=== PATIENT | female | born 1935 | race Caucasian/White ===

== ENCOUNTER → 2016-06-02 | Outpatient (CLI) | payer MEDICARE, BC ==
--- NOTE | 2016-06-02 10:34 | US ---
EXAMINATION TYPE: US thyroid st tissue head/neck DATE OF EXAM: 06/02/2016 9:13 AM COMPARISON: 2016 CLINICAL HISTORY: Thyroid Nodule E04.1. GLAND SIZE: Right Lobe: 4.6 x 1.7 x 1.9 cm Overall Parenchyma: heterogenous Left Lobe: 4.2 x 1.1 x 1.5 cm Overall Parenchyma: heterogeneous Isthmus Thickness: 0.2 cm NODULES RIGHT: # of nodules measured on right: 3 1. 0.5 X 0.4 x 0.5 cm calcified nodule at the upper/lateral pole with well-defined margins; . This nodule is round and shows no intranodular vascularity. Prior size: 0.7 x 0.6 x 0.6 cm 2. 1.2 X 0.8 x 1.0 cm solid nodule at the upper/mid pole with well-defined margins; . This nodule i s wider than tall and shows intranodular vascularity. Prior size: 1.3 x 1.2 x 1.1 cm 3. 1.0 X 0.5 x 0.7 cm solid nodule at the lateral pole with well-defined margins; . This nodule is wider than tall and shows intranodular vascularity. LEFT: # of nodules measured on left: 1 1. 1.1 X 0.6 x 0.5 cm solid nodule at the lower pole with well-defined margins; . This nodule is w ider than tall and shows intranodular vascularity. Prior size: 1.3 x 1.0 x 0.8 cm ISTHMUS: # of nodules measured in the isthmus: 0 Bilateral neck scanned, no evidence of lymphadenopathy. IMPRESSION: 1. Multinodular goiter. 2. Left lobe thyroid nodule may be increasing in size. Consider correlation with nuclear medicine thy roid scan.
== END | disposition home or self-care (01) ==
LOC: RADUSWWP 08:48
PROVIDERS: ATTEND Internal Medicine
DX: E04.2 Nontoxic multinodular goiter (principal)
CPT/HCPCS: 76536

== ENCOUNTER → 2016-06-13 | Outpatient (CLI) | payer MEDICARE, BC ==
--- NOTE | 2016-06-13 12:55 | NM ---
EXAMINATION TYPE: NM thyroid image only DATE OF EXAM: 06/13/2016 12:49 PM COMPARISON: Thyroid ultrasound 06/02/2016 HISTORY: E04.1 nontoxic single thyroid nodule TECHNIQUE: After the intravenous administration of 10.4 mCi Tc 99m Sodium Pertechnetate. FINDINGS: There is focal increased radiotracer accumulation overlying the upper pole of the left thyroid lobe. Suspect hepatic nodule. No evidence for cold nodule. Residual thyroid uptake estimated appears to be within normal limits. IMPRESSION: Suspect tiny nodule upper pole left thyroid lobe.
== END | disposition home or self-care (01) ==
LOC: RADNMMAIN 11:02
PROVIDERS: ATTEND Internal Medicine
DX: E04.1 Nontoxic single thyroid nodule (principal)
CPT/HCPCS: 78013; A9512

== ENCOUNTER → 2017-11-03 | Outpatient (CLI) | payer MEDICARE, BC ==
[2017-11-03 14:06] LABS: HGB 14.3 gm/dL (11.4-16.0); MCH 31.4 pg (25.0-35.0); MCHC 33.3 g/dL (31.0-37.0); MCV 94.2 fL (80.0-100.0); Platelet Count 193 k/uL (150-450); RBC 4.56 m/uL (3.80-5.40); RDW 12.5 % (11.5-15.5); WBC 9.1 k/uL (3.8-10.6)
[2017-11-03 14:07] LABS: Appearance,Urine Clear (Clear); Bilirubin,Urine Negative (Negative); Blood,Urine Negative (Negative); Color,Urine Yellow; Glucose,Urine (UA) Negative (Negative); Ketones,Urine Negative (Negative); Leukocyte Esterase,Urine Negative (Negative); Nitrite,Urine Negative (Negative); Protein,Urine Trace (Negative); Specific Gravity,Urine 1.017 (1.001-1.035); Urobilinogen,Urine <2.0 mg/dL (<2.0)
[2017-11-03 14:21] LABS: Partial Thromboplastin Time 23.2 sec (22.0-30.0)
[2017-11-03 14:53] LABS: Albumin 4.1 g/dL (3.5-5.0); Calcium 10.4 mg/dL (8.4-10.2); Potassium 4.2 mmol/L (3.5-5.1); Total Bilirubin 0.5 mg/dL (0.2-1.3); Total Protein 7.2 g/dL (6.3-8.2)
== END | disposition home or self-care (01) ==
LOC: LABPAT 12:49
PROVIDERS: ATTEND Orthopaedic Surgery
DX: Z01.812 Encounter for preprocedural laboratory examination (principal); Z79.01 Long term (current) use of anticoagulants
CPT/HCPCS: 80053; 81003; 85027; 85610; 85730; 87070

== ENCOUNTER 2017-11-21 07:14 | Inpatient (IN) | payer MEDICARE, BC ==
[2017-11-09 15:47] VITALS: BMI 31.1
[~2017-11-21 07:14] MED LIST: ACETAMINOPHEN TAB 500 MG TAB PO ONE; MELOXICAM 7.5 MG TAB PO ONE; ROPIVACAINE 246.25 MG, EPINEPHrine 0.5 MG, KETOROLAC 30 MG, cloNIDine HCL/PF 80 MCG, WA... MISCELLANE ONE; TRANEXAMIC ACID 1,000 MG in SODIUM CHLORIDE 0.9% 50 ML IVPB ONE; ceFAZolin IN SWFI 2 GM/20 ML SYRINGE IVP ONE; fentaNYL (PF) 50 MCG/ML 2 ML AMP IV PRN
[2017-11-21] MEDS ORDERED: ONDANSETRON 4 MG/2 ML VIAL ONE (07:40)
[2017-11-21] MEDS ORDERED: MIDAZOLAM 2 MG/2 ML VIAL ONE (08:07)
[2017-11-21] MEDS: LACTATED RINGERS 1,000 ML IV SCH ×2 (08:10→15:50)
[2017-11-21] MEDS ORDERED: LIDOCAINE 1% 20 ML VIAL (10MG/ML) FOR IV START INTRADERMA ONE (08:11)
[2017-11-21 08:36] LABS: Glucose,Whole Blood 132 mg/dL (75-99)
[2017-11-21] MEDS ORDERED: MIDAZOLAM 2 MG/2 ML VIAL IVP ONE (08:39)
[2017-11-21] MEDS ORDERED: DIAZEPAM 5 MG TAB PO PRN (08:54)
[2017-11-21] MEDS ORDERED: NA PHOS,M-B/NA PHOS,DI-BA 133 ML ENEMA RECTAL PRN (08:54)
[2017-11-21] MEDS ORDERED: HYDROcodone/APAP 5-325MG 1 EACH TAB PO PRN (08:54)
[2017-11-21] MEDS ORDERED: BISACODYL 10 MG SUPP RECTAL PRN (08:54)
[2017-11-21] MEDS ORDERED: MAGNESIUM HYDROXIDE 2,400 MG/10 ML CUP PO PRN (08:54)
[2017-11-21] MEDS ORDERED: NALOXONE 0.4 MG/ML 1 ML VIAL IV PRN (08:54)
[2017-11-21] MEDS ORDERED: HYDROmorphone 1 MG/ML 1 ML SYRINGE IVP PRN ×3 (08:54)
[2017-11-21] MEDS ORDERED: ROPIVACAINE 1,100 MG, SODIUM CHLORIDE 0.9% 500 ML 330 ML MISCELLANE PRN ×2 (09:20)
--- NOTE | 2017-11-21 09:20 | P.ONQ ---
Anesthesiology Proc Note - PNB - Peripheral Nerve Block Performed Left Adductor Canal Infusion Time Out Performed: Yes Procedure Start Time: 08:40 Procedure Stop Time: 08:55 Indication: Acute Post-Operative Pain, Requested by physician (Dr Rosa) Sedation Type: Sedate with meaningful contact maintained Preparation: Sterile Dressing Position: Supine Catheter: Indwelling Needle Types: Touhy Needle Size: 100mm (4") Needle Gauge: 18 Technique: Ultrasound (Image saved) Injectate: 0.5% Ropivacaine (see comment for volume) (30 mls) Blood Aspirated: No Pain Paresthesia on Injection Noted: No Resistance on Injection: Normal Events: Uneventful and Well Tolerated
[2017-11-21] MEDS ORDERED: MORPHINE SULFATE 2 MG/ML SYRINGE IVP PRN (09:44)
[2017-11-21] MEDS ORDERED: ceFAZolin 3,000 MG in SODIUM CHLORIDE 0.9% IRRIGATIO 3,000 ML IRRIGATION ONE (10:08)
[2017-11-21] MEDS ORDERED: LACTATED RINGERS 1,000 ML IV ONE (10:30)
--- NOTE | 2017-11-21 11:02 | P.OP ---
Date of Procedure: 11/21/17 Preoperative Diagnosis: Severe osteoarthritis left knee Postoperative Diagnosis: Severe osteoarthritis left knee Procedure(s) Performed: Left total knee arthroplasty Implants: Beck and Nephew Oxinium femoral component size 4, left Beck & Nephew Kizzy II left nonporous tibial baseplate size 3 Beck & Nephew size 9 mm Legion XLPE dished articular insert, size 3-4 Beck & Nephew Kizzy II resurfacing patellar component, 29 mm All components were cemented using Araceli bone cement.. The articulation is Oxinium on polyethylene. Anesthesia: spinal Surgeon: Richi Rosa Compensation/Benefits Specialist #1: Tali Tim Estimated Blood Loss (ml): 50 Pathology: other (Bone and cartilage) Condition: stable Disposition: PACU Indications for Procedure: After failure of conservative treatment we discussed the surgical and nonsurgical treatment options at length. Patient wishes to proceed with a total knee arthroplasty. Complications specific to this procedure were discussed at length, including but not limited to infection, bleeding, stiffness , and nerve injury. Patient is aware of all these complications and informed consent was obtained Operative Findings: The operative findings are consistent with severe osteoarthritis of the left knee Description of Procedure: Patient was seen in the preoperative area consent was reviewed and operative site was marked with a skin marker. An adductor canal pain catheter was placed by anesthesia in the preoperative area. Patient was then brought to the operating room and given preoperative antibiotics intravenously. A spinal anesthetic was administered by the anesthesia department. A tourniquet was placed on the upper thigh and the lower extremity was prepped and draped in usual sterile fashion. A gram of transexamic acid was given. A universal timeout was then performed which confirmed the patient's name, surgical site, ALLERGIES, and consent. The lower extremity was then exsanguinated and tourniquet was inflated to 250 mmHg. A standard and anterior midline approach to the knee was performed. The skin and subcutaneous tissue was dissected down to the patellar tendon. A medial parapatellar arthrotomy was then performed. The knee was then extended, the patellar was everted, and the knee was again flexed. Anterior horns of both menisci were excised, and a release was performed to the posterior medial aspect of the knee. On gross visual inspection, there was complete loss of articular cartilage in the medial and patellofemoral joint spaces. There was also significant cartilage damage in the lateral compartment. There were multiple periarticular osteophytes which were then removed with a Ronguer. The femoral canal was then opened with the appropriate drill, and the intramedullary femoral cutting guide was then placed and set for 4 of valgus. The distal femoral cutting block was then pinned in place, and the distal femur was then cut. The cutting block was then removed and the cut was checked for flatness. Next, the sizing guide was then placed and set for 3 external rotation based off of the epicondylar axis and Whitesides line. After the femur was sized, the appropriate 4-in-1 cutting block was then pinned in place. The anterior condyles were cut without notching. The posterior and chamfer cuts were performed while protecting the collateral ligaments. The cutting block was then removed, and the femoral canal was plugged with autologous bone. Attention was then directed to the tibia. The remaining ACL was removed with a Ronguer, and the tibia was then gently subluxed forward with a large bent knee retractor. Any remaining menisci was excised. The posterior lateral corner was cauterized in order to cauterize the lateral geniculate artery. The extra medullary tibial cutting guide was then placed, set for the appropriate rotation , slope, and depth of resection. The proximal tibia cutting guide was then pinned in place. Proximal tibia was then cut and sized. Next trials were then placed with the appropriate-sized insert. The knee was able to fully extend and flex to 130 and was stable throughout all range of motion. The knee was then extended, patella everted. Patella was then measured, and then using an osteotomy guide, the patella was cut at the appropriate level. The patella was then measured and drilled and the patella trial was then placed. The knee was then taken through range of motion with the patella trial and the patella tracked normally. The knee was then extended patella trial was then removed and the patella was everted. Knee was then flexed and lug holes were drilled through the femoral trial and the femoral trial was then removed. The tibial was then exposed, and the tibial broach guide was then pinned in place after it was set for the appropriate rotation to allow for the most coverage without overhang. The tibia was then reamed and broached. The cut surfaces of bone were then irrigated with pulsatile lavage. The posterior structures were injected with the ropivacaine solution. The knee was also irrigated with Irrisept solution. The components were then opened, the cement was mixed, and the components were then cemented in place. The cement was allowed to harden with the knee in full extension. While the cement was hardening, the remaining soft tissues were then injected with a ropivacaine solution, which consisted of 246.25 mg of ropivacaine, 0.5 mg of epinephrine, 30 mg of Toradol, 80 g of clonidine, and 48.45 mL of sterile water, for a total of 100 mL of fluid injected. After the cemented hardened. The tourniquet was released, and hemostasis was obtained. A second gram of transexamic acid was given. The knee was again irrigated. The knee was again taken through range of motion and found to be stable throughout all range of motion of 0-130 , and the patella tracked normally. The fascia was then closed with #2 strata fix suture. The subcutaneous tissue was closed with 3-0 Vicryl and 3-0 strata fix. Dermabond glue was used for the skin and placed with the knee in flexion. The patient was placed in a sterile silver dressing. Patient was then transferred to recovery room in stable condition. The salon shampoo assistant FRENCH Moreira was required due the complexity surgery and the need for a skilled technician assistant. She assisted in positioning, draping, retraction, and closure of the wound.
[2017-11-21 11:58] LABS: Glucose,Whole Blood 108 mg/dL (75-99)
[2017-11-21] MEDS: SODIUM CHLORIDE 0.9% 1,000 ML IV SCH ×2 (12:32→23:44)
--- NOTE | 2017-11-21 15:39 | XR ---
EXAMINATION TYPE: XR knee limited LT DATE OF EXAM: 11/21/2017 COMPARISON: NONE TECHNIQUE: Two views submitted HISTORY: Post op FINDINGS: There is a prosthetic knee in near anatomic alignment. There is soft tissue edema and emphysema. IMPRESSION: 1. Postoperative change. Appears in near-anatomic alignment
[2017-11-21] MEDS: ceFAZolin IN SWFI 2 GM/20 ML SYRINGE IVP SCH ×2 (15:48→23:44)
[2017-11-21 17:33] LABS: Glucose,Whole Blood 77 mg/dL (75-99)
[2017-11-21] MEDS: INSULIN ASPART 100 UNIT/ML 1 ML 10 ML VIAL SQ SCH ×2 (17:34→21:06)
[2017-11-21] MEDS: metFORMIN 500 MG TAB PO SCH (18:13)
[2017-11-21 20:08] LABS: Glucose,Whole Blood 110 mg/dL (75-99)
[2017-11-21] MEDS: MULTIVITAMINS, THERA 1 EACH TAB PO SCH (21:11)
[2017-11-21] MEDS: ATORVASTATIN 10 MG TAB PO SCH (21:11)
[2017-11-21] MEDS: MONTELUKAST 10 MG TAB PO SCH (21:11)
[2017-11-21] MEDS: SENNOSIDES-DOCUSATE SODIUM 1 EACH TAB PO SCH (21:11)
[2017-11-21] MEDS: ASPIRIN 325 MG TAB PO SCH (21:11)
--- NOTE | 2017-11-22 00:14 | CONS ---
CONSULTATION DATE OF CONSULTATION: 11/21/2017. REASON FOR CONSULTATION: Medical management requested by Dr. Rosa. CONSULTATION: This is a pleasant 82-year-old patient of Dr. Ellis. Chronic stable medical conditions include asthma, diabetes, hypertension, hyperlipidemia, hypothyroid, GERD. The patient underwent a left total knee arthroplasty. Saw this patient this morning. Pain is controlled. No nausea, vomiting, getting a liquid diet. No history of cardiac history. No chest pain or short of breath. Family present at the bedside. REVIEW OF SYSTEMS: CONSTITUTIONAL: None. HEENT: None. RESPIRATORY: None. CARDIOVASCULAR: None. GASTROINTESTINAL: Heartburn. GENITOURINARY: Urinary incontinence. DERMATOLOGICAL, HEMATOLOGIC, LYMPHATIC: none. PSYCHIATRY: None. NEUROLOGICAL: None. MUSCULOSKELETAL: Arthritic pain in other joints, including the shoulders and knees. PAST MEDICAL HISTORY: Asthma, diabetes, hypertension, hyperlipidemia, osteoarthritis, hypothyroid, GERD, urinary incontinence, stress incontinence. PAST SURGICAL HISTORY: Cholecystectomy, joint replacement, left lithotripsy, also surgery from right kidneys was removed, stone was removed, right oophorectomy, salpingectomy, bunionectomy, hammertoe bilateral, left rotator cuff surgery, trigger finger, middle finger, left hand, bilateral cataract, removal of basal cell cancer, left total hip. SOCIAL HISTORY: Smokes 2 packs a day for 20 years, stopped in 1996. Lives by herself. No alcohol. FAMILY HISTORY: Of breast and colon cancer. HOME MEDICATIONS: 1. Glucophage XR 500 mg p.o. b.i.d. 2. Norvasc 5 mg p.o. daily. 3. Valsartan hydrochlorothiazide 320/25 1 tablet p.o. daily. 4. Protonix 40 mg p.o. daily. 5. Aleve 220 mg p.o. b.i.d. 6. Centrum Complete 1 tablet p.o. at bedtime. 7. Singulair 10 mg q.h.s. 8. Toprol-XL 100 mg p.o. daily. 9. Mevacor 10 mg p.o. q.h.s. 10.Vitamin D3 2000 units p.o. daily. 11.Aspirin 81 mg p.o. q.h.s. ALLERGIES: PENICILLIN. PHYSICAL EXAMINATION: VITAL SIGNS: Temperature 97, pulse 76, respiration 12, blood pressure 113/67, pulse ox 94 percent. GENERAL APPEARANCE: Well built. BMI 31.1. Sitting up, comfortable. EYES: Pupils equal. Conjunctivae normal. HEENT: External appearance of nose and ears normal. Oral cavity normal. NECK: JVD not raised. Mass not palpable. RESPIRATORY: Effort normal. LUNGS are clear. CARDIOVASCULAR: First and second sounds normal. No edema. ABDOMEN: Soft, nontender. Liver and spleen not palpable. LYMPHATICS: No lymph nodes palpable in the neck and axilla. PSYCHIATRY: Alert and oriented times three. Mood and affect normal. NEUROLOGICAL: Pupils equal. Cranial nerves grossly intact. Power grossly intact. EXTREMITIES: Left knee in a dressing. INVESTIGATIONS: Accu-Cheks noted. The patient's blood work from November 03, 2017 shows a hemoglobin of 14.3, potassium 4.2. BUN 41, creatinine 1.19. ASSESSMENT: 1. Left total knee arthroplasty. 2. Intermittent asthma. 3. Diabetes mellitus type 2 on oral hypoglycemics. 4. Essential hypertension. 5. Hyperlipidemia. 6. Primary osteoarthritis. 7. Gastroesophageal reflux disease. 8. Chronic urinary stress incontinence. PLAN: Home medications are resumed. Pain control is in place. The patient is on aspirin 325 twice a day for DVT prophylaxis. Continue on a liquid diet. That will be advanced as tolerated. Care was discussed. The patient should follow up with Dr. Ellis upon discharge. Thank you Dr. Rosa. SPENCER / WESLEY: [id number] /
[2017-11-22 07:25] LABS: Glucose,Whole Blood 110 mg/dL (75-99)
--- NOTE | 2017-11-22 08:59 | P.PN ---
Subjective Progress Note Date: 11/22/17 This is an 82-year-old female who is status post left total knee arthroplasty. This is postoperative day #1. Patient is seen and evaluated at bedside with Dr. Richi Rosa. Patient states that her pain can is under control and she is doing very well. Patient denies any fever/chills, numbness, weakness, tingling, abdominal pain, shortness of breath or chest pain. Objective - Vital Signs Vital signs: Vital Signs Temp 98 F 11/22/17 07:30 Pulse 78 11/22/17 07:30 Resp 16 11/22/17 07:30 BP 138/81 11/22/17 07:30 Pulse Ox 94 L 11/22/17 07:30 Intake & Output 11/21/17 11/22/17 11/22/17 18:59 06:59 18:59 Intake Total 1651 1040 450 Output Total 50 Balance 1601 1040 450 Weight 77.111 kg Intake: IV 1401 Intake, IV Titration 1040 Amount Sodium Chloride 0.9% 1, 1040 000 ml @ 65 mls/hr IV . [id number] [facility] Rx#:[id number] Oral 250 450 Output: Estimated Blood Loss 50 Other: Voiding Method Bedside Commode # Voids 1 - Exam Vital signs are stable. Patient is in no acute distress and is alert and oriented 3. Calf is soft and nontender to palpation. Dressing is clean, dry, and intact. Patient has full foot and ankle motion without pain or difficulty. Neurovascular status and circulatory status are intact. - Labs Labs: Abnormal Lab Results - Last 24 Hours (Table) 11/21/17 11/21/17 11/22/17 Range/Units 11:55 20:06 07:24 POC Glucose (mg/dL) 108 H 110 H 110 H (75-99) mg/dL Assessment and Plan Assessment: Asthma Type 2 diabetes mellitus Essential hypertension Hyperlipidemia Gastroesophageal reflux disease Chronic urinary stress incontinence (1) Primary osteoarthritis of left knee Current Visit: Yes Status: Acute Code(s): M17.12 - UNILATERAL PRIMARY OSTEOARTHRITIS, LEFT KNEE SNOMED Code(s): 965826712634251 (2) Status post total left knee replacement Current Visit: Yes Status: Acute Code(s): Z96.652 - PRESENCE OF LEFT ARTIFICIAL KNEE JOINT SNOMED Code(s): 2996329436752 Plan: #1 Continue with routine postoperative care, leave dressing in place for ten days. #2 Anticoagulation with aspirin. #3 Physical therapy today. #4 Appreciate input from medicine. #5 Anticipate discharge to rehab in the next 1-2 days.
[2017-11-22] MEDS: INSULIN ASPART 100 UNIT/ML 1 ML 10 ML VIAL SQ SCH ×4 (09:36→20:45)
[2017-11-22] MEDS: METOPROLOL SUCCINATE (ER) 100 MG TAB.ER.24H PO SCH (10:14)
[2017-11-22] MEDS: ASPIRIN 325 MG TAB PO SCH ×2 (10:14→20:51)
[2017-11-22] MEDS: PANTOPRAZOLE 40 MG TABLET PO SCH (10:15)
[2017-11-22] MEDS: amLODIPine 5 MG TAB PO SCH (10:15)
[2017-11-22] MEDS: metFORMIN 500 MG TAB PO SCH ×2 (10:15→18:20)
[2017-11-22] MEDS: HYDROCHLOROTHIAZIDE 25 MG TAB PO SCH (10:15)
[2017-11-22] MEDS: HYDROcodone/APAP 5-325MG 1 EACH TAB PO PRN ×3 (10:24→23:06)
[2017-11-22] MEDS ORDERED: HYDROmorphone 2 MG TAB PO PRN ×3 (10:35→10:37)
[2017-11-22 11:20] LABS: Glucose,Whole Blood 144 mg/dL (75-99)
[2017-11-22] MEDS: VALSARTAN 160 MG TAB PO SCH (11:31)
[2017-11-22 11:40] LABS: Basophils % (A) 0 %; Eosinophils # (A) 0.2 k/uL (0-0.7); Eosinophils % (A) 3 %; HCT 37.8 % (34.0-46.0); HGB 12.4 gm/dL (11.4-16.0); Lymphocytes % (A) 12 %; MCH 30.8 pg (25.0-35.0); MCHC 32.7 g/dL (31.0-37.0); MCV 94.2 fL (80.0-100.0); Mean Platelet Volume 8.1; Monocytes # (A) 0.4 k/uL (0-1.0); Monocytes % (A) 5 %; Neutrophils # (A) 6.2 k/uL (1.3-7.7); Neutrophils % (A) 79 %; Platelet Count 159 k/uL (150-450); RBC 4.01 m/uL (3.80-5.40); RDW 12.2 % (11.5-15.5); WBC 7.9 k/uL (3.8-10.6)
[2017-11-22 17:15] LABS: Glucose,Whole Blood 101 mg/dL (75-99)
[2017-11-22 17:47] LABS: Hemoglobin A1C 5.6 % (4.0-6.0)
[2017-11-22] MEDS: SODIUM CHLORIDE 0.9% 1,000 ML IV SCH (18:07)
[2017-11-22] MEDS: LACTATED RINGERS 1,000 ML IV SCH (18:08)
--- NOTE | 2017-11-22 19:26 | P.PN ---
Progress Note - Text 11/22 1200 Female status post total knee replacement by Dr. Richi Rosa. Patient is an On-Q pump infusion for postop pain control with a VAS of 4. Plan to continue On-Q pump infusion
[2017-11-22 19:59] LABS: Glucose,Whole Blood 131 mg/dL (75-99)
[2017-11-22] MEDS: SENNOSIDES-DOCUSATE SODIUM 1 EACH TAB PO SCH (20:51)
[2017-11-22] MEDS: ATORVASTATIN 10 MG TAB PO SCH (20:51)
[2017-11-22] MEDS: MULTIVITAMINS, THERA 1 EACH TAB PO SCH (20:51)
[2017-11-22] MEDS: MONTELUKAST 10 MG TAB PO SCH (20:51)
--- NOTE | 2017-11-22 22:13 | PN ---
PROGRESS NOTE DATE OF SERVICE: 11/22/2017 PRESENTING COMPLAINT: Left knee surgery. INTERVAL HISTORY: Patient is status post left knee surgery. Pain is better controlled. No nausea or vomiting. Breathing is stable. Tolerating a diet. Did work with Therapy. REVIEW OF SYSTEMS: Done for constitutional, cardiovascular, GI, pulmonary, musculoskeletal; relevant findings as above. CURRENT MEDICATIONS: Reviewed. PHYSICAL EXAMINATION: Temperature 98.3, pulse 80, respiration 16, blood pressure 128/75, pulse ox 93% on room air. GENERAL APPEARANCE: Sitting up. Comfortable. EYES: Pupils equal. Conjunctivae normal. HEENT: External appearance of nose and ears normal. Oral cavity normal. NECK: JVD not raised. Mass not palpable. RESPIRATORY: Effort normal. Lungs are clear. CARDIOVASCULAR: First and second sounds normal. No edema. ABDOMEN: Soft, non-tender. Liver and spleen not palpable. PSYCHIATRY: Alert and oriented x3. Mood and affect normal. INVESTIGATIONS: White count 7.9, hemoglobin 12.4. Accu-Cheks are noted. ASSESSMENT: 1. Left total knee arthroplasty. 2. Intermittent asthma, controlled. 3. Diabetes mellitus, type 2, on oral hypoglycemic. 4. Essential hypertension. 5. Hyperlipidemia. 6. Primary osteoarthritis. 7. Gastroesophageal reflux disease. 8. Chronic urinary stress incontinence. PLAN: Continue current medication and treatment plan. Patient is looking to go to the [facility]. MMODL / IJN: [id number] /
[2017-11-23 07:20] LABS: Glucose,Whole Blood 124 mg/dL (75-99)
--- NOTE | 2017-11-23 08:08 | P.PN ---
Subjective Progress Note Date: 11/23/17 This is an 82-year-old female who is status post left total knee arthroplasty. This is postoperative day #2. Patient admits to some soreness in the left knee today. Patient denies any fever/chills, numbness, weakness, tingling, abdominal pain, shortness of breath or chest pain. Objective - Vital Signs Vital signs: Vital Signs Temp 98.7 F 11/23/17 00:13 Pulse 77 11/23/17 00:13 Resp 15 11/23/17 00:13 BP 144/82 11/23/17 00:13 Pulse Ox 94 L 11/23/17 00:13 Intake & Output 11/22/17 11/23/17 11/23/17 18:59 06:59 18:59 Intake Total 1160 Balance 1160 Intake: IV 260 Sodium Chloride 0.9% 1, 260 000 ml @ 65 mls/hr IV . [id number] [facility] Rx#:[id number] Oral 900 Other: Voiding Method Toilet Toilet Bedside Commode # Voids 2 1 - Exam Vital signs are stable. Patient is in no acute distress and is alert and oriented 3. Calf is soft and nontender to palpation. Dressing is clean, dry, and intact. Patient has full foot and ankle motion without pain or difficulty. Neurovascular status and circulatory status are intact. - Labs CBC & Chem 7: 11/22/17 10:09 Labs: Abnormal Lab Results - Last 24 Hours (Table) 11/22/17 11/22/17 11/22/17 Range/Units 11:18 17:10 19:57 POC Glucose (mg/dL) 144 H 101 H 131 H (75-99) mg/dL 11/23/17 Range/Units 07:19 POC Glucose (mg/dL) 124 H (75-99) mg/dL Assessment and Plan Assessment: Asthma Type 2 diabetes mellitus Essential hypertension Hyperlipidemia Gastroesophageal reflux disease Chronic urinary stress incontinence (1) Primary osteoarthritis of left knee Current Visit: Yes Status: Acute Code(s): M17.12 - UNILATERAL PRIMARY OSTEOARTHRITIS, LEFT KNEE SNOMED Code(s): 421077044767206 (2) Status post total left knee replacement Current Visit: Yes Status: Acute Code(s): Z96.652 - PRESENCE OF LEFT ARTIFICIAL KNEE JOINT SNOMED Code(s): 3760779550876 Plan: #1 Continue with routine postoperative care, leave dressing in place for ten days. #2 Anticoagulation with aspirin. #3 Physical therapy today. #4 Appreciate input from medicine. #5 Likely discharge to rehab tomorrow.
[2017-11-23] MEDS: SODIUM CHLORIDE 0.9% 1,000 ML IV SCH ×2 (09:25→20:29)
[2017-11-23] MEDS: METOPROLOL SUCCINATE (ER) 100 MG TAB.ER.24H PO SCH (10:08)
[2017-11-23] MEDS: ASPIRIN 325 MG TAB PO SCH ×2 (10:08→20:27)
[2017-11-23] MEDS: INSULIN ASPART 100 UNIT/ML 1 ML 10 ML VIAL SQ SCH ×4 (10:08→20:29)
[2017-11-23] MEDS: VALSARTAN 160 MG TAB PO SCH (10:09)
[2017-11-23] MEDS: PANTOPRAZOLE 40 MG TABLET PO SCH (10:10)
[2017-11-23] MEDS: metFORMIN 500 MG TAB PO SCH ×2 (10:10→16:17)
[2017-11-23] MEDS: amLODIPine 5 MG TAB PO SCH (10:11)
[2017-11-23] MEDS: HYDROCHLOROTHIAZIDE 25 MG TAB PO SCH (10:11)
[2017-11-23 11:53] LABS: Glucose,Whole Blood 139 mg/dL (75-99)
[2017-11-23] MEDS: LACTATED RINGERS 1,000 ML IV SCH (16:16)
[2017-11-23 17:32] LABS: Glucose,Whole Blood 135 mg/dL (75-99)
[2017-11-23 20:21] LABS: Glucose,Whole Blood 124 mg/dL (75-99)
[2017-11-23] MEDS: ATORVASTATIN 10 MG TAB PO SCH (20:27)
[2017-11-23] MEDS: SENNOSIDES-DOCUSATE SODIUM 1 EACH TAB PO SCH (20:27)
[2017-11-23] MEDS: MONTELUKAST 10 MG TAB PO SCH (20:27)
[2017-11-23] MEDS: MULTIVITAMINS, THERA 1 EACH TAB PO SCH (20:27)
--- NOTE | 2017-11-24 06:56 | PN ---
PROGRESS NOTE DATE OF SERVICE: 11/23/2017 PRESENTING COMPLAINT: Left knee surgery. INTERVAL HISTORY: Patient is status post left knee surgery, doing better, walking with therapy. No nausea, vomiting. Tolerating a diet. Pain is controlled. REVIEW OF SYSTEMS: Done for constitutional, cardiovascular, GI, pulmonary, musculoskeletal; relevant findings as above. CURRENT MEDICATIONS: Current medications are reviewed. PHYSICAL EXAMINATION: On examination, temperature 98.2, pulse 76, respirations 16, blood pressure 126/74, pulse ox 95% on room air. GENERAL APPEARANCE: Sitting up in a chair, comfortable. EYES: Pupils equal. Conjunctivae normal. HENT: External appearance of nose and ears normal. Oral cavity normal. NECK: JVD not raised. Mass not palpable. RESPIRATORY: Effort normal. Lungs are clear. CARDIOVASCULAR: First and second sounds normal. No edema. ABDOMEN: Soft, nontender. Liver and spleen not palpable. PSYCHIATRY: Alert and oriented x3. Mood and affect normal. INVESTIGATIONS: Accu-Cheks are noted. ASSESSMENT: 1. Left total knee arthroplasty. 2. Intermittent asthma, controlled. 3. Diabetes mellitus type 2, on oral hypoglycemic. 4. Essential hypertension. 5. Hyperlipidemia. 6. Primary osteoarthritis. 7. Gastroesophageal reflux disease. 8. Chronic urinary stress incontinence. PLAN: Continue current medication and treatment plan. Care was discussed with the patient. Pending to go to the [facility]. MMODL / IJN: [id number] /
[2017-11-24 07:26] VITALS: BP 148/78; PULSE 78; RESP 16; TEMP 98.2
[2017-11-24 07:31] LABS: Glucose,Whole Blood 102 mg/dL (75-99)
[2017-11-24] MEDS: INSULIN ASPART 100 UNIT/ML 1 ML 10 ML VIAL SQ SCH ×2 (07:45→13:16)
[2017-11-24] MEDS: metFORMIN 500 MG TAB PO SCH (07:49)
[2017-11-24 07:54] LABS: Basophils % (A) 0 %; Eosinophils # (A) 0.2 k/uL (0-0.7); Eosinophils % (A) 2 %; HCT 36.1 % (34.0-46.0); HGB 11.9 gm/dL (11.4-16.0); Lymphocytes # (A) 1.6 k/uL (1.0-4.8); Lymphocytes % (A) 16 %; MCH 30.8 pg (25.0-35.0); MCV 93.4 fL (80.0-100.0); Mean Platelet Volume 8.7; Monocytes # (A) 0.7 k/uL (0-1.0); Monocytes % (A) 7 %; Neutrophils # (A) 7.1 k/uL (1.3-7.7); Neutrophils % (A) 73 %; Platelet Count 168 k/uL (150-450); RBC 3.87 m/uL (3.80-5.40); WBC 9.8 k/uL (3.8-10.6)
--- NOTE | 2017-11-24 08:18 | P.DS ---
Providers Date of admission: 11/21/17 07:14 Expected date of discharge: 11/24/17 Attending physician: Richi Rosa Consults: 11/21/17 08:54 Consult Physician Routine Consulting Provider: Sher Ellis Consult Reason/Comments: medical management Do you want consulting provider notified?: Yes 11/21/17 12:09 Consult Physician Routine Consulting Provider: Danyel Serra Consult Reason/Comments: medical managment Do you want consulting provider notified?: Already Contacted Primary care physician: Sher Ellis - Discharge Diagnosis(es) (1) Primary osteoarthritis of left knee Current Visit: Yes Status: Acute (2) Status post total left knee replacement Current Visit: Yes Status: Acute Hospital Course: This is a 82-year-old female with known history of degenerative arthritis of the left knee. The patient presents for evaluation. After discussion and consideration patient elects to proceed with total knee arthroplasty. The patient is seen preoperatively by Dr. Rosa and medically cleared for surgery by their primary care physician. Patient is admitted to [facility] on 11/21/2017 for total knee arthroplasty. The procedures performed without complication or sequelae. The patient is doing well postoperatively. Labs and vital signs are stable on day of discharge. On day of discharge patient's knee incision is healing well. There is minimal erythema. There is no drainage noted at this time. There is minimal soft tissue swelling to the knee. Patient has full foot and ankle motion without difficulty or pain. Neurovascular status to the left lower extremity is intact. Patient is discharged to rehab in good condition. Please see med rec for accurate list of home medications. Plan - Discharge Summary Discharge Rx Participant: Yes New Discharge Prescriptions: New Aspirin 325 mg PO BID #60 tab HYDROcodone/APAP 5-325MG [[facility] 5-325] 1 - 2 tab PO Q4-6H PRN #84 tab PRN Reason: Pain Sennosides [Senokot] 1 tab PO BID #60 tablet No Action Cholecalciferol [Vitamin D3] 2,000 unit PO DAILY Multivitamin/Iron/Folic Acid [Centrum Complete Multivit Tab] 1 tab PO HS Lovastatin [Mevacor] 10 mg PO HS Aspirin [Adult Low Dose Aspirin EC] 81 mg PO HS metFORMIN HCL ER [Glucophage Xr] 500 mg PO BID amLODIPine BESYLATE [Norvasc] 5 mg PO QAM Pantoprazole Sodium [Protonix] 40 mg PO QAM Valsartan/Hydrochlorothiazide [Valsartan-Hctz 320-25 mg Tab] 1 tab PO QAM Montelukast Sodium [Singulair] 10 mg PO HS Naproxen Sodium [Aleve] 220 mg PO BID Metoprolol Succinate (ER) [Toprol Xl] 100 mg PO QAM Discharge Medication List Aspirin [Adult Low Dose Aspirin EC] 81 mg PO HS 07/06/15 [History] Cholecalciferol [Vitamin D3] 2,000 unit PO DAILY 07/06/15 [History] Lovastatin [Mevacor] 10 mg PO HS 07/06/15 [History] Montelukast Sodium [Singulair] 10 mg PO HS 07/06/15 [History] Multivitamin/Iron/Folic Acid [Centrum Complete Multivit Tab] 1 tab PO HS [History] Pantoprazole Sodium [Protonix] 40 mg PO QAM 07/06/15 [History] Valsartan/Hydrochlorothiazide [Valsartan-Hctz 320-25 mg Tab] 1 tab PO QAM [History] amLODIPine BESYLATE [Norvasc] 5 mg PO QAM 07/06/15 [History] metFORMIN HCL ER [Glucophage Xr] 500 mg PO BID 07/06/15 [History] Metoprolol Succinate (ER) [Toprol Xl] 100 mg PO QAM 11/09/17 [History] Naproxen Sodium [Aleve] 220 mg PO BID 11/09/17 [History] Aspirin 325 mg PO BID #60 tab 11/22/17 [Rx] HYDROcodone/APAP 5-325MG [[facility] 5-325] 1 - 2 tab PO Q4-6H PRN #84 tab 11/22/17 [ Rx] Sennosides [Senokot] 1 tab PO BID #60 tablet 11/22/17 [Rx] Follow up Appointment(s)/Referral(s): Richi Rosa DO [Doctor of Osteopathic Medicine] - 12/06/17 2:00 pm Patient Instructions/Handouts: Knee Replacement (DC) Activity/Diet/Wound Care/Special Instructions: Weightbearing as tolerated with a walker Leave dressing intact. May be removed by home care nurse in 10 days. May shower with dressing on. Please call [facility] with any questions or concerns, Discharge Disposition: TRANSFER TO SNF/ECF
[2017-11-24] MEDS: HYDROcodone/APAP 5-325MG 1 EACH TAB PO PRN (08:25)
[2017-11-24] MEDS: HYDROCHLOROTHIAZIDE 25 MG TAB PO SCH (08:26)
[2017-11-24] MEDS: PANTOPRAZOLE 40 MG TABLET PO SCH (08:26)
[2017-11-24] MEDS: METOPROLOL SUCCINATE (ER) 100 MG TAB.ER.24H PO SCH (08:26)
[2017-11-24] MEDS: ASPIRIN 325 MG TAB PO SCH (08:26)
[2017-11-24] MEDS: amLODIPine 5 MG TAB PO SCH (08:26)
[2017-11-24] MEDS: VALSARTAN 160 MG TAB PO SCH (08:26)
--- NOTE | 2017-11-24 12:15 | PN ---
PROGRESS NOTE DATE OF SERVICE: 11/24/2017 PRESENTING COMPLAINT: Left knee surgery. INTERVAL HISTORY: Patient is status post left knee surgery, doing much better, walking with therapy. No new symptoms. Tolerating a diet. Going to the [facility] today, rather cheerful. REVIEW OF SYSTEMS: Done for constitutional, cardiovascular, GI, pulmonary, musculoskeletal; relevant finding as above. CURRENT MEDICATIONS: Reviewed. PHYSICAL EXAMINATION: Temperature 98.2, pulse 72, respiration 16, blood pressure 140/78, pulse ox 94% on room air. GENERAL APPEARANCE: Sitting up, comfortable. EYES: Pupils equal, conjunctivae normal. HEENT: External appearance of nose and ears normal. Oral cavity normal. NECK: JVD not raised. Mass not palpable. RESPIRATORY: Effort normal, lungs are clear. CARDIOVASCULAR: First and second sounds are normal. No edema. ABDOMEN: Soft, nontender. Liver and spleen are not palpable. PSYCHIATRY: Alert and oriented x3. Mood and affect normal. INVESTIGATIONS: White count 9.8, hemoglobin 11.9. ASSESSMENT: 1. Left total knee arthroplasty. 2. Intermittent asthma, controlled. 3. Diabetes mellitus type 2, on oral hypoglycemic. 4. Essential hypertension. 5. Hyperlipidemia. 6. Primary osteoarthritis. 7. Gastroesophageal reflux disease. 8. Chronic kidney stress incontinence. PLAN: Care was discussed with the patient. Patient doing well. Going to the [facility] today. MMODL / IJN: [id number] /
[2017-11-24 12:43] LABS: Glucose,Whole Blood 80 mg/dL (75-99)
== END 2017-11-24 15:01 | DRG 470 ==
LOC: 2ORMAIN 07:14 → 3SUR 11:44
PROVIDERS: ADMIT Orthopaedic Surgery; ATTEND Orthopaedic Surgery
PROC: 0SRD069 Replacement of Left Knee Joint with Oxidized Zirconium on Polyethylene Synthetic Substitute, Cemented, Open Approach (ICD-10-PCS; principal; 2017-11-21 09:15)
DX: M17.0 Bilateral primary osteoarthritis of knee (principal); E11.21 Type 2 diabetes mellitus with diabetic nephropathy; E03.9 Hypothyroidism, unspecified; I10 Essential (primary) hypertension; E78.5 Hyperlipidemia, unspecified; K21.9 Gastro-esophageal reflux disease without esophagitis; J45.20 Mild intermittent asthma, uncomplicated; N39.3 Stress incontinence (female) (male); H91.90 Unspecified hearing loss, unspecified ear; Z79.84 Long term (current) use of oral hypoglycemic drugs; Z79.1 Long term (current) use of non-steroidal anti-inflammatories (NSAID); Z79.82 Long term (current) use of aspirin; Z79.899 Other long term (current) drug therapy; Z87.891 Personal history of nicotine dependence; Z90.49 Acquired absence of other specified parts of digestive tract; Z96.642 Presence of left artificial hip joint; Z87.442 Personal history of urinary calculi; Z98.42 Cataract extraction status, left eye; Z98.41 Cataract extraction status, right eye; Z90.721 Acquired absence of ovaries, unilateral; Z90.79 Acquired absence of other genital organ(s); Z85.828 Personal history of other malignant neoplasm of skin; Z87.440 Personal history of urinary (tract) infections; Z88.0 Allergy status to penicillin; Z80.0 Family history of malignant neoplasm of digestive organs; Z80.3 Family history of malignant neoplasm of breast; Z82.49 Family history of ischemic heart disease and other diseases of the circulatory system
CPT/HCPCS: 83036; 85025; 88300

== ENCOUNTER → 2019-01-30 | Outpatient (CLI) | payer MEDICARE, BC ==
[2019-01-30 10:00] LABS: Basophils # (A) 0.1 k/uL (0-0.2); Basophils % (A) 1 %; Eosinophils # (A) 0.6 k/uL (0-0.7); Eosinophils % (A) 8 %; HCT 42.8 % (34.0-46.0); HGB 14.3 gm/dL (11.4-16.0); Lymphocytes # (A) 1.8 k/uL (1.0-4.8); Lymphocytes % (A) 24 %; MCH 31.1 pg (25.0-35.0); MCHC 33.3 g/dL (31.0-37.0); MCV 93.4 fL (80.0-100.0); Mean Platelet Volume 8.8; Monocytes # (A) 0.5 k/uL (0-1.0); Monocytes % (A) 6 %; Neutrophils # (A) 4.6 k/uL (1.3-7.7); Neutrophils % (A) 60 %; Platelet Count 189 k/uL (150-450); RBC 4.59 m/uL (3.80-5.40); RDW 12.3 % (11.5-15.5); WBC 7.7 k/uL (3.8-10.6)
--- NOTE | 2019-01-30 10:03 | US ---
EXAMINATION TYPE: US abdomen complete DATE OF EXAM: 01/30/2019 COMPARISON: CT 2011 CLINICAL HISTORY: R10.816 EPIGASTRIC ABD TENDERNESS. Intermittent abdomen tenderness x couple months, history kidney stones, history of cholecystectomy EXAM MEASUREMENTS: Liver Length: 14.3 cm CBD: 1.3 cm Spleen: 8.0 cm Right Kidney: 9.5 x 4.6 x 5.0 cm Left Kidney: 10.7 x 5.0 x 4.1 cm Pancreas: visualized portions wnl, limited by overlying midline bowel gas Liver: 1.8 x 1.3 x 1.5cm hypoechoic oval lesion inferior right lobe, 1.1 x 1.5 x 1.8cm cystic lesion left lobe Gallbladder: surgically absent Evidence for sonographic Ugalde's sign: no CBD: dilated Spleen: wnl Right Kidney: 0.9cm echogenic shadowing focus medial mid pole, multiple cystic areas with largest me asuring 6.9 x 4.5 x 6.0cm Left Kidney: 0.7cm echogenic shadowing focus mid pole, multiple cystic areas with largest measuring 2.6cm Upper IVC: wnl Abd Aorta: wnl The visualized liver is heterogeneously hyperechoic. Evaluation for focal masses suboptimal due to t he heterogeneity. Technologist maldonado to lesions between 1 to 2 cm, versus lesion more superficial is hypoechoic to anechoic with suggestion of some increased transmission. Favor simple cyst. Some small hypoechoic lesions are seen on [address] CT. No intrahepatic ductal dilatation. The intrahepatic portion o f the IVC is unremarkable. Visualized abdominal aorta show some distal ectasia without greater than 3 .0 cm aneurysm. There is no evidence of cholelithiasis. Common bile duct is dilated near jordy hepa tis but not significantly changed from 2011 CT coronal image 38. The visualized portions of the panc reas is heterogeneous without mass or ductal dilatation. The spleen is unremarkable. Kidneys are sy mmetric and free of hydronephrosis. Scattered simple-appearing thin-walled cysts are identified throu ghout both kidneys. Increased cortical echogenicity is present. Bilateral nonobstructing renal calcul i present. IMPRESSION: Redemonstration of nonobstructing renal stones bilaterally. No hydronephrosis is evident currently. Evidence of chronic medical renal disease. Probable diffuse fatty infiltration of liver. N o new or acute findings evident.
[2019-01-30 10:19] LABS: Albumin 4.1 g/dL (3.5-5.0); Calcium 10.6 mg/dL (8.4-10.2); Potassium 4.2 mmol/L (3.5-5.1); Total Bilirubin 0.6 mg/dL (0.2-1.3)
[2019-01-30 10:29] LABS: Appearance,Urine Clear (Clear); Bacteria,Urine Rare /hpf; Bilirubin,Urine Negative (Negative); Blood,Urine Negative (Negative); Color,Urine Yellow; Glucose,Urine (UA) Negative (Negative); Hyaline Casts,Urine 3 /lpf (0-2); Ketones,Urine Negative (Negative); Leukocyte Esterase,Urine Large (Negative); Mucus,Urine Rare /hpf; Nitrite,Urine Negative (Negative); PH, Urine 5.5 (5.0-8.0); Protein,Urine 1+ (Negative); Specific Gravity,Urine 1.018 (1.001-1.035); Squamous Epithelial Cell,Urine 2 /hpf (0-4); Urobilinogen,Urine <2.0 mg/dL (<2.0); WBC,Urine 74 /hpf (0-5)
[2019-01-30 20:23] LABS: Hemoglobin A1C 5.6 % (4.0-6.0)
== END | disposition home or self-care (01) ==
LOC: RADUSWWP 08:11
PROVIDERS: ATTEND Internal Medicine
DX: N20.0 Calculus of kidney (principal); I10 Essential (primary) hypertension; E11.21 Type 2 diabetes mellitus with diabetic nephropathy; R53.83 Other fatigue; R10.816 Epigastric abdominal tenderness
CPT/HCPCS: 76700; 80053; 80061; 81001; 83036; 84443; 85025

== ENCOUNTER → 2020-11-02 | Outpatient (CLI) | payer MEDICARE, BC ==
[2020-11-02 21:56] LABS: African American GFR (CKD) 39.3 (60.0-200.0); Albumin 4.4 g/dL (3.80-4.90); Anion Gap 10.6 mmol/L (4.00-12.00); BUN/Creat Ratio 22.14 Ratio (12.00-20.00); Calcium 10.1 mg/dL (8.7-10.3); Carbon Dioxide 25.4 mmol/L (21.6-31.8); Non-African American GFR(CKD) 33.9 (60.0-200.0); Phosphorus 3.3 mg/dL (2.4-5.1); Potassium 4.4 mmol/L (3.5-5.5)
[2020-11-02 22:04] LABS: T4, Free (Free Thyroxine) 1.4 ng/dL (0.80-1.80)
[2020-11-02 22:14] LABS: Basophils # (A) 0.06 X 10*3/uL (0.00-0.10); Basophils % (A) 0.6 %; Eosinophils # (A) 0.42 X 10*3/uL (0.04-0.35); Eosinophils % (A) 4.5 %; HCT 41.6 % (37.2-46.3); HGB 13.8 g/dL (12.0-15.0); Lymphocytes # (A) 1.98 X 10*3/uL (0.90-5.00); Lymphocytes % (A) 21.2 %; MCH 32.5 pg (27.0-32.0); MCHC 33.2 g/dL (32.0-37.0); MCV 97.9 fL (80.0-97.0); Mean Platelet Volume 14.2 fL (9.5-12.2); Monocytes % (A) 7.5 %; Neutrophils # (A) 6.12 X 10*3/uL (1.80-7.70); Neutrophils % (A) 65.8 %; Platelet Count 198 X 10*3/uL (140-440); RBC 4.25 X 10*6/uL (4.10-5.20); RDW 11.9 % (11.5-14.5); WBC 9.32 X 10*3/uL (4.50-10.00)
== END | disposition home or self-care (01) ==
LOC: LABWHC1 11:44
PROVIDERS: ATTEND Family Medicine
DX: N18.32 Chronic kidney disease, stage 3b (principal); E03.9 Hypothyroidism, unspecified
CPT/HCPCS: 36415; 80069; 82306; 83970; 84439; 84443; 84481; 85025